=== PATIENT | female | born 1985 | race Caucasian/White ===

== ENCOUNTER 2017-04-11 09:57 | Inpatient (IN) | payer OTHER ==
[~2017-04-11] VITALS: Ht 170.2 cm; Wt 103.0 kg
[~2017-04-11 09:57] MED LIST: PNV1COMB5
[2017-04-21] MEDS ORDERED: OXYTOCIN 30 UNIT/D5LR 500 ML 500 ML IV PRN (13:28)
[2017-04-21] MEDS ORDERED: LR(*) 1000 ML BAG 1,000 ML IV PRN (13:28)
[2017-04-21] MEDS ORDERED: DLR(*) 1000 ML BAG 1,000 ML IV SCH ×2 (13:28→15:05)
[2017-04-21] MEDS ORDERED: ceFAZolin(*) 2GM/D5W 50ML 50 ML IVPB PRN ×2 (13:28→15:05)
[2017-04-21] MEDS ORDERED: FAMOTIDINE(*) 20MG/50ML PREMIX 50 ML IVPB PRN ×2 (13:28→15:05)
[2017-04-21] MEDS ORDERED: LIDOCAINE 1% LOCAL 300 MG/30ML INJ PRN ×2 (13:30→15:05)
[2017-04-21] MEDS ORDERED: METOCLOPRAMIDE 10 MG/2 ML SDV IVP PRN ×2 (13:30→15:05)
[2017-04-21] MEDS ORDERED: FLUSH 10 ML SYR IVP PRN ×2 (13:30→15:05)
[2017-04-21] MEDS ORDERED: fentaNYL CITR 100 MCG/2 ML AMP IVP PRN ×2 (13:30→15:05)
[2017-04-21] MEDS ORDERED: ONDANSETRON 4 MG/2 ML VIAL IVP PRN ×2 (13:30→15:05)
[2017-04-21] MEDS ORDERED: MISOPROSTOL 25 MCG CAP PV PRN (13:30)
[2017-04-21] MEDS ORDERED: ACETAMINOPHEN 325 MG TAB PO ONE (13:30)
[2017-04-21] MEDS ORDERED: LIDOCAINE/SOD BICARB 8.4% SYR SC PRN ×2 (13:30→15:05)
[2017-04-21] MEDS ORDERED: TERBUTALINE SULF 1 MG/ML VIAL SUBQ PRN ×2 (13:30→15:05)
[2017-04-21] MEDS ORDERED: FAMOTIDINE 10 MG/ML SDV IVP PRN (15:05)
[2017-04-21] MEDS ORDERED: FAMOTIDINE 20 MG/50 ML PREMIX IVPB PRN (15:20)
[2017-04-21 16:06] VITALS: BP 158/86; Ht 170.2 cm; Wt 103.0 kg
[2017-04-21 16:19] LABS: PLATELET COUNT, AUTOMATED 175 K/uL (150-450)
[2017-04-21] MEDS: MISOPROSTOL 25 MCG CAP PV PRN ×2 (16:23→21:10)
[2017-04-21] MEDS: LR(*) 1000 ML BAG 1,000 ML IV PRN (21:10)
[2017-04-22] MEDS: OXYTOCIN 30 UNIT/D5LR 500 ML 500 ML IV PRN (02:00)
[2017-04-22] MEDS: LR(*) 1000 ML BAG 1,000 ML IV PRN ×3 (04:08→13:50)
--- NOTE | 2017-04-22 07:28 | History & Physical ---
History of Present Illness Age of Patient: 32 : 1 Para or TPAL: 0 EDC per LMP: Apr 23, 2017 EDC per U/S: Apr 18, 2017 Estimated Gestational Age: 39.6 Chief Complaint Induction of labor History of Present Illness Pt is a 32 y/o @ 39-6/7 weeks gestation who presents to L&D for an induction of Labor secondary to Polyhydramnios and Gestational Hypertension. Pt reported to clinic and was noted to be measuring size greater then dates. Underwent sonogram that showed JOSHUA of 26 and an EFW of 8#13oz. Pt denies any headaches or visual changes. Good movement. No vaginal bleeding. 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 , Michael. Med Rec Home Meds Reported Medications Pnv #116/Iron Fumarate/Fa/Dha (EXPECTA COMBO PACK) 1 Each Combo..pkg 04/01/17 Review of Systems All Systems Reviewed/Normal: Yes, Except as Noted Constitutional: No Fever, No Weight Loss, No Weight Gain, No Chills, No Night Sweats, No Other Neurological: No Syncope, No Confusion, No Weakness, No Dizziness, No Slurred Speech, No Other Eyes: No Vision Change, No Loss of Vision, No Photophobia, No Other ENT: No Hearing Loss, No Sinus Congestion, No Sore Throat, No Ear Ache, No Tinnitus, No Other Cardiovascular: No Chest Pain, No Palpitations, No Orthostatic Hypotension, No Other Respiratory: No Shortness of Breath, No Cough, No Wheezing, No Other Gastrointestinal: No Nausea, No Vomiting, No Diarrhea, No Dysphagia, No Constipation, No Early Satiety, No Hematemesis, No Hematochezia, No Melena, No Abdominal Pain, No Other Genitourinary: No Dysuria, No Hematuria, No Urinary Incontinence, No Other Musculoskeletal: No Pain, No Sprain, No Strain, No Impaired Mobility, No Other Psychiatric: No Depression, No Anxiety, No Other Exam General Exam Vital Signs Vital Signs Date Time Temp Pulse Resp B/P (MAP) Pulse Ox O2 Delivery O2 Flow Rate FiO2 04/21/17 16:06 98.9 118 21 158/86 (110) 95 Room Air General Apperance: Alert/Awake/No Acute Distress Neuro: No Gross deficits Eyes: Normal Extraocular Movement & Vison, PERRLA ENT: Normal Cardiovascular: Regular Rate and Rhythm Respiratory: No Respiratory Distress, Clear to Auscultation Abdomen: Soft, Non-Tender, Non-Distended, Gravid - Non-Tender : Normal Musculoskeletal: No Weakness/Pain Extremities: No Cyanosis,Clubbing or Edema Integumentary: Skin Intact without Lesions or Rash Psychological: Appropriate Mood & Affect Vaginal Discharge/Fluid?: Clear Fluid (amniotomy with clear fluid) Cervical Dialation: 3 Cervical Effacement (%): 75 Cervical Consistency: Moderate Cervical Position: Anterior Station: -2 Presentation: Vertex Uterine Contractions(Q min): 2 Uterine Contraction Strength: Moderate UC Resting Tone: Soft Fetus Feeling Movement?: No Estimated Weight(grams): 4010 Heart Tones: 130 Heart Tone Variabilty: Moderate FHT Accelerations: 15X15 FHT Decelerations: None FHT Category: I Medical Decision Making Data Points Result Diagram: 04/21/17 1603 Pre-Admit Course Medical Record Review: Yes VTE Prophylasis: Adult Deep Vein Thrombosis/Pulmonary: No 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 Amniotomy at 0545. Currently on oxytocin at 6 mU/min. (3) Gestational hypertension SHARRI MORENO DO Apr 22, 2017 07:28
--- NOTE | 2017-04-22 08:37 | Labor Progress Note ---
Labor Subjective Progress Notes Subjective Oxytocin at 8 milliunits/minute, with contractions Q 3 minutes, becoming more painful, 5-6/10. Still doesn't want epidural. Leaking large amounts of clear fluid. Labor Objective Vital Signs Vital Signs Date Time Temp Pulse Resp B/P (MAP) Pulse Ox O2 Delivery O2 Flow Rate FiO2 04/21/17 16:06 98.9 118 21 158/86 (110) 95 Room Air BP's about 150/90's. Cervical Dialation: 3.5 Cervical Effacement (%): 85 Cervical Consistency: Moderate Cervical Position: Posterior Station: -2 Fetus Heart Tones: 130 FHT Category: I Other Result Diagram: 04/21/17 1603 Assessment and Plan Problems: (1) 39 weeks gestation of Assessment & Plan: Slow progress in labor. Continue IV Oxytocin. Might need internal uterine monitor if cervical change remains low. (2) POLYHYDRAMNIOS, THIRD TRIMESTER, NOT APPLICABLE OR UNSP (3) Gestational hypertension Assessment & Plan: Stable hypertension. MARIN TORRE MD Apr 22, 2017 08:37
[2017-04-22] MEDS ORDERED: fentaNYL CITR 100 MCG/2 ML AMP IT PRN (10:55)
[2017-04-22] MEDS ORDERED: FENTANYL/ROPIVACAINE 100 ML BAG EPI PRN (10:55)
[2017-04-22] MEDS ORDERED: BUPIVACAINE 0.25% MPF INJ EPI PRN (10:55)
[2017-04-22] MEDS ORDERED: BUPIVACAINE 0.5% INJ 30ML VIAL EPI PRN (10:55)
[2017-04-22] MEDS ORDERED: LIDO/EPI 2% MPF 1:200,000 20ML EPI PRN (10:55)
[2017-04-22] MEDS ORDERED: LIDOCAINE/PF 2% 200MG/10ML AMP 200 MG/10 ML AMPUL EPI PRN (10:55)
[2017-04-22] MEDS ORDERED: EPIDURAL KEYS XX PRN (10:58)
[2017-04-22] MEDS ORDERED: ePHEDrine 25 MG/5 ML DISP.SYR IVP ONE (11:32)
--- NOTE | 2017-04-22 13:59 | Anesthesia OB Pre-Anes Eval ---
History of Present Illness Anesthesia Start Date: Apr 22, 2017 Anesthesia Start Time: 11:35 OB Anesthesia Diagnosis: induction - medical Complications: None known EDC: Apr 23, 2017 : 1 Para: 0 Vital Signs: Vital Signs Date Time Temp Pulse Resp B/P (MAP) Pulse Ox O2 Delivery O2 Flow Rate FiO2 04/21/17 16:06 98.9 118 21 158/86 (110) 95 Room Air Pain Ratin Heart Tones: WNL Result Diagram: 04/21/17 1603 Height (Inches): 67.00 Weight (Pounds): 227 BMI Calculated: 35.55 Past Medical History Surgical History: tonsillectomy Previous Anesthesia: general Attended Childbirth Classes?: No Hx Anesthesia Reactions: No Hx Family Anesthesia Reaction: No Current Medications: pitocin, pain medication Home Meds Reported Medications Pnv #116/Iron Fumarate/Fa/Dha (EXPECTA COMBO PACK) 1 Each Combo..pkg 04/01/17 Allergies: Uncoded Allergies: BERRIES (Allergy, Severe, HIVES, THROAT SWELLING, 02/22/13) Anesthesia OB ROS Neurological: No migraines/headaches, No seizures, No neuropathy ENT: Denies Tooth caps, Denies Loose teeth, Denies Chipped teeth, Denies Dentures, Denies Bridges, Denies Retainers, Denies Veneers, Denies Implants, Denies Tongue ring Pulmonary: No asthma, No smoker (pks/day/yrs) Airway Class: lV Cardiovascular ROS: No edema, No arrhythmia, other GI ROS: clear liquids Last Solids Date: Apr 21, 2017 Last Solids Time: 20:00 ROS: No Herpes, No STD(s), No Liver Disease, No Renal Disease Endocrine ROS: No diabetes, No gestational diabetes, No thyroid disorder Musculoskeletal ROS: No low back pain, No low back injury, No scoliosis ASA Classification: 2 Assessment and Plan Anesthesia Plan: CSE Assessment Past Medical, Surgical, Family and Obstetric Histories reviewed. Please see ACOG chart. Epidural anesthesia risks, complications and benefits explained to patient's satisfaction for labor and vaginal delivery and/or section. General anesthesia risks and benefits explained to patient's satisfaction. Questions invited, none asked. MICHAEL LUGO CRNA Apr 22, 2017 13:59
--- NOTE | 2017-04-22 14:03 | Procedure Note ---
Anesthetic Placement Note Anesthesia Plan: CSE Permit for Anesthesia Signed: Yes Anesthesia Technique: Patient Sitting Anesthesia Prep: Chlorhexidine Interspace: L 3-4 Local Anesthetic: 1% Lidocaine, 25 Gauge Needle Amount Local - cc's: 2 Anesthesia Needle: 17g Touhy/Schliff Anesthesia Attempts: 1 Loss of Resistance: Air Depth of SYDNEE (cm): 7 Intrathecal Needle: 27 Gauge Pencan Cerebral Spinal Fluid: Yes, Clear Catheter Insertion (cm): 9 Catheter Type: Louie - Spring Wound Epidural Dressing: Tegaderm, Tape, Adhesive Reese Anesthesia Tray: Lot Number ([id number]), Expiration Date (2017-12-10), Reference Number ([id number]) Comment: Vital signs stable. Patient comfortable and condition stable. Anesthesia Medications: Intrathecal Dose: mcg Fentanyl (15), mg Marcaine MPF (1.75), Time (1153) Epidural Test Dose: 1.5 Lido/Epi (1:200,000), Dose - mL (2), Time (1215), Negative Epidural Loading Dose: 0.2% Ropivicaine, With Fentanyl 2mcg/ml, Dose - ml (5), Time (1218) Epidural Infusion: 0.2% Ropivicaine, With Fentanyl 2mcg/ml, Start Time: (1218) Epidural Pump Setting: Bolus Dose - mL (5), Lockout - Minutes (20), Maintenance Rate - mL/hr (6), Maximum per Hour - mL (21) Complications: None Comment: Pt. appears to be move comfortable. Encouraged to sleep as much as possible. MICHAEL LUGO CRNA Apr 22, 2017 14:03
--- NOTE | 2017-04-22 14:05 | Anesthesia Progress Note ---
Progress/Maintenance Anesthesia Note Date: Apr 22, 2017 Anesthesia Note Time: 13:45 Pain Intensity: 0 Pump: On Pump Rate (ML/HR): 4 Sensory Level: T-12 Motor Level: Other (Both legs very heavy) Dilatation: 6 Position: Right, Tilt Assessment and Plan Assessment Pt. sleeping very soundly, snoring loudly. Woke pt. to have her turn to left side. Pt. states she can not lift her left leg. Epidural pump rate decreased to 4 ml/hr from 6/hr. MICHAEL LUGO CRNA Apr 22, 2017 14:05
--- NOTE | 2017-04-22 16:38 | Anesthesia Progress Note ---
Progress/Maintenance Anesthesia Note Date: Apr 22, 2017 Anesthesia Note Time: 16:30 Pain Intensity: 0 Pump: On Pump Rate (ML/HR): 4 Sensory Level: T-10 Motor Level: Other (leg remains very heavy) Dilatation: 8 Position: Semi-Fowlers Assessment and Plan Assessment Pt. more awake now. Sitting semi-fowlers per RN request. Pt. states she only notices contractions with viewing them on the monitor and can then tell her abdomen is tight. MICHAEL LUGO CRNA Apr 22, 2017 16:38
[2017-04-22] MEDS: ACETAMINOPHEN 325 MG TAB PO PRN ×2 (17:25→21:58)
--- NOTE | 2017-04-22 19:19 | Labor Progress Note ---
Labor Subjective Progress Notes Subjective Feeling increased pressure. Feeling Movement?: Yes Vaginal Discharge/Fluid: Bloody Show, Clear Fluid Labor Pain: Mild Neurological: No Headache, No Other Eyes: No Visual Disturbances Labor Objective Vital Signs Vital Signs Date Time Temp Pulse Resp B/P (MAP) Pulse Ox O2 Delivery O2 Flow Rate FiO2 04/21/17 16:06 98.9 118 21 158/86 (110) 95 Room Air Vaginal Discharge/Fluid?: Bloody Show, Clear Fluid Cervical Dialation: 9 Cervical Effacement (%): 100 Cervical Consistency: Soft Cervical Position: Anterior Station: -1 Presentation: Vertex Uterine Contractions(Q min): 3 Uterine Contraction Strength: Moderate UC Resting Tone: Soft Fetus Heart Tones: 135 Heart Tone Variabilty: Moderate FHT Accelerations: 15X15 FHT Decelerations: None FHT Category: I Other Result Diagram: 04/21/17 1603 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 Oxytocin at 22 mU/min. Continue oxytocin to 30 to get adequate labor pattern. (3) Gestational hypertension SHARRI MORENO DO Apr 22, 2017 19:19
--- NOTE | 2017-04-22 19:20 | Anesthesia Progress Note ---
Progress/Maintenance Anesthesia Note Date: Apr 22, 2017 Anesthesia Note Time: 19:15 Pain Intensity: 4 Pump: On Pump Rate (ML/HR): 6 Sensory Level: T-12 Motor Level: Bending Knees-Bilateral Dilatation: 9 Position: Right, Tilt Drug Bolus: 0.2% Ropivicaine, Fentanyl 2mcg/ml, Other (Fentenyl 50 mcgs) Assessment and Plan Assessment Pt. states she is feeling contractions now and becoming stronger, rates them as a "4". Bolus of Fentenyl and bolus per epidural pump given. Rate of epidural pump increased to 6 ml. Pt. is able to move her left leg move now. MICHAEL LUGO CRNA Apr 22, 2017 19:19
--- NOTE | 2017-04-22 20:30 | Anesthesia Progress Note ---
Progress/Maintenance Anesthesia Note Date: Apr 22, 2017 Anesthesia Note Time: 20:00 Pain Intensity: 0 Pump: On Pump Rate (ML/HR): 6 Sensory Level: T-12 Dilatation: 9 Position: Left, Tilt Assessment and Plan Assessment Pt. states that she is more comfortable after epidural medication was given. Numerous family at beside. MICHAEL LUGO CRNA Apr 22, 2017 20:30
[2017-04-22] MEDS ORDERED: METHYLERGONOVINE MAL 0.2MG/ML ONE (22:33)
[2017-04-22] MEDS ORDERED: CARBOPROST TROMETHAM 250MCG/ML IM ONLY ONE (22:33)
--- NOTE | 2017-04-22 23:23 | Labor Progress Note ---
Labor Subjective Progress Notes Subjective Doing good. Starting to feel increased pressure with each contraction. Reports a mild headache that Tylenol has helped. 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 Will start pushing with patient. (3) Gestational hypertension SHARRI MORENO DO Apr 22, 2017 23:23
[2017-04-23] MEDS: OXYTOCIN 30 UNIT/D5LR 500 ML 500 ML IV PRN (00:54)
[2017-04-23] MEDS ORDERED: DIPHTH/TETANUS/ACEL. PERTUSSIS IM ONE (00:55)
[2017-04-23] MEDS ORDERED: BENZOCAINE 20% 60 ML BTL TP PRN (00:55)
[2017-04-23] MEDS ORDERED: GLYCERIN/WITCH HAZEL LEAF 1 PK TOP PRN (00:55)
[2017-04-23] MEDS ORDERED: MEASLES,MUMP,RUBELLA VAC 0.5ML SC ONE (00:55)
[2017-04-23] MEDS ORDERED: APAP/HYDROCODONE 325/5 TAB PO PRN (00:55)
[2017-04-23] MEDS ORDERED: HYDROCORTISONE 2.5% CR 30GM TB PR PRN (00:55)
[2017-04-23] MEDS ORDERED: MAGNESIUM HYDROXIDE* 30ML UDCP PO PRN (00:55)
[2017-04-23] MEDS ORDERED: INFLUENZA VIRUS VAC 0.5 ML SYR IM ONLY ONE (00:55)
--- NOTE | 2017-04-23 00:55 | Anesthesia Progress Note ---
Progress/Maintenance Anesthesia Note Date: Apr 23, 2017 Anesthesia Note Time: 00:40 Pain Intensity: 0 Pump: Off Motor Level: Bending Knees-Bilateral Dilatation: 10 Position: Semi-Fowlers Drug Bolus: Other (Fentenyl 35 mcgs) Assessment and Plan Assessment Pump rate was decreased to 3 ml/hr at 2250. Pt was sleeping very soundly. For delivery, pt. was able to push well and was very comfortable during repair work. Patient instructed the first ambulation is to be with help of nursing staff. Instructed to preform deep knee bends at bedside before walking. Empty syringe attached to epidural catheter and RN agrees to remove with pt's first ambulation. Anesthesia Stop Day: Apr 23, 2017 Anesthesia Stop Time: 00:40 MICHAEL LUGO CRNA Apr 23, 2017 00:55
--- NOTE | 2017-04-23 01:03 | OB Delivery Note ---
Delivery Note Vaginal Delivery Type: Spont. Vaginal Delivery Delivery Date: Apr 23, 2017 Delivery Time: 00:07 Estimated Gestational Age(wks): 40.0 Length of Labor Stage I (hrs): 18 Length of Labor Stage II (hrs): 1 Labor Stage III (minutes): 8 Delivery Anesthesia: Epidural Sex: Male Infant Weight (gms): 4050 (8#15oz) [place] Apgars: 1 Minute (8) Repair Needed: Labial (bilateral), 2nd Degree Game Warden in Attendence: SHARRI Blanco DO Apr 23, 2017 01:03
[2017-04-23] MEDS: IBUPROFEN 800 MG TAB PO SCH ×3 (02:01→17:26)
[2017-04-23] MEDS: LANOLIN OINT 7 GM TUBE TP PRN (02:24)
[2017-04-23 03:42] VITALS: BP 129/65
[2017-04-23 07:30] VITALS: BP 107/60
[2017-04-23 07:55] VITALS: BP 134/68
--- NOTE | 2017-04-23 08:13 | OB/GYN Progress Note ---
OB Subjective Progress Notes Subjective Feeling OK. Tired, but slept about 5 hours. Moderate lochia. Ambulating well, has voided. Perineum and labia fairly sore. Baby doing well. OB Objective Physical Exam Vital Signs Date Time Temp Pulse Resp B/P (MAP) Pulse Ox O2 Delivery O2 Flow Rate FiO2 04/23/17 03:42 97.8 125 18 129/65 (86) 95 Room Air General Appearance: Alert/Awake/No Acute Distress Cardiovascular: Regular Rate and Rhythm Respiratory: No Respiratory Distress, Clear to Auscultation Abdomen: Bowel Sounds Present, Fundus Firm (at U), Non-Tender Extremities: Edema (1+ pretibial), No Tender Calves Psychological: Alert & Oriented X3, Appropriate Mood & Affect Result Diagram: 04/21/17 1603 Assessment and Plan Problems: (1) Encounter for care and examination of mother immediately after delivery Assessment & Plan: Doing fairly well, now about 8 hours after delivery. Continue PP care and observation of BP's. Home tomorrow. (2) 39 weeks gestation of Status: Resolved (3) POLYHYDRAMNIOS, THIRD TRIMESTER, NOT APPLICABLE OR UNSP Status: Resolved (4) Gestational hypertension Status: Resolved MARIN TORRE MD Apr 23, 2017 08:13
[2017-04-23] MEDS: DOCUSATE CALCIUM 240 MG CAP PO SCH ×2 (08:58→21:29)
--- NOTE | 2017-04-23 09:38 | Anesthesia Post Eval Note ---
Anesthesia Post Eval Note Vital Signs Date Time Temp Pulse Resp B/P (MAP) Pulse Ox O2 Delivery O2 Flow Rate FiO2 04/23/17 03:42 97.8 125 18 129/65 (86) 95 Room Air Pt able to participate in Eval: Yes Cardiovascular Status: Satisfactory Respiratory Status: Satisfactory Pain Managment: Satisfactory PO Nausea/Vomiting: Satisfactory Temperature Management: Satisfactory Mental Status: Satisfactory, Alert, Oriented X3 Post-Op Hydration Status: Satisfactory, Tolerating PO Well, Voiding w/o Difficulty Anesthesia Type: CSE Anesthesia Tolerance: Tolerated procedure well without apparent anesthetic complications. LP site clear, no redness or edema. Denies headache or any residual paresthesia. Vital Signs Stable, Patient comfortable and condition stable. MICHAEL LUGO CRNA Apr 23, 2017 09:38
[2017-04-23 13:11] VITALS: BP 133/76
[2017-04-23] MEDS ORDERED: CALCIUM CARBONATE 500 MG CHEW PO PRN (16:20)
[2017-04-23 16:41] VITALS: BP 129/74
--- NOTE | 2017-04-23 17:31 | DELIVERY NOTE ---
DELIVERY DATE: April 23, 2017 SURGEON: Bryce Jimenes DO ANESTHESIA: Epidural by Mahsa De Souza PREOPERATIVE DIAGNOSIS 1. A 32-year-old 1, para 0 at 40-0/7 weeks gestation. 2. Induction of labor. 3. Polyhydramnios. 4. Gestational hypertension. POSTOPERATIVE DIAGNOSES 1. A 32-year-old 1, para 0 at 40-0/7 weeks gestation. 2. Induction of labor. 3. Polyhydramnios. 4. Gestational hypertension. 5. Delivered. PROCEDURE Spontaneous vaginal delivery with repair of bilateral labia lacerations and second degree midline laceration. COMPLICATIONS Unknown. CONDITION Stable times two. Mother and remained in LDRP. COUNTS Correct times two for all needles, laps, sponges and instruments. ESTIMATED BLOOD LOSS [*] 500 mL PATHOLOGY None. FINDINGS Live born male infant at 0007 of April 23, 2017 with Apgars of 8 and 9, weighing 4050 g, 8 pounds 15 ounces. Three vessel cord, intact placenta over a second degree midline laceration with bilateral labial lacerations. LABOR SUMMARY Patient is a 32-year-old 1, para 0 at 40 weeks gestation who presented to clinic on April 21, 2017 for an OB check. She was noted to be measuring size greater than dates. She underwent an ultrasound that noted an infant that is approximately 4.1 kg, but did have polyhydramnios with an JOSHUA of 26. Patient was counseled at secondary to being 39, almost 40 weeks gestation, that she should undergo induction of labor for polyhydramnios. It would also benefit her to get induced to ensure that the infant did not get any larger or cause any more difficulty with delivery. Patient left the office and presents to Labor and Delivery approximately four hours later. She underwent vaginal exam and was noted to be 1 cm dilated. She did receive two doses of 25 mcg of Cytotec approximately four hours apart for cervical ripening. With cervical ripening the patient was noted to be holly roughly every three to seven minutes. She was started on oxytocin. Oxytocin infusion remained overnight. She underwent amniotomy on April 22, 2017 with clear amniotic fluid at 3 cm. Oxytocin was continued. The patient made slow progress throughout the day, but eventually did get to complete with the help of oxytocin and an epidural. Once the patient was noted to be complete, a few trial pushes were attempted and coaching was performed by the nursing staff, and after an approximately an hour of pushing the delivery team was called and assembled. DELIVERY SUMMARY The patient was placed in the dorsal lithotomy position. She was prepped and draped in the usual sterile manner. Upon maternal pushing the 's head was delivered in a controlled manner in the direct OA position. With gentle downward motion the anterior shoulder was delivered. With gentle upward motion the posterior shoulder was delivered, with the remainder of the 's body delivered spontaneously. The mouth and nose were bulb suctioned. The infant was placed on maternal abdomen, where he was vigorously cleaned and dried by the nursing staff. Approximately two minutes the cord was clamped times two and cut by the 's father. With the cord clamped and cut, the infant had the changed and remained on maternal chest and abdomen. Cord blood gases were then obtained. The placenta delivered spontaneously with gentle traction. With delivery of the placenta, the oxytocin was infused to help with uterine tone. Uterus massaged, deemed firm. Upon inspection of the perineum, vagina, cervix and labia it was noted that there was a significant right labial laceration with a left labial laceration, as well as a second degree midline laceration. The labia lacerations were repaired with 4-0 Vicryl in a running manner. The second degree midline laceration was repaired with a 3-0 Vicryl inter-running manner. With lacerations inspected, the patient was noted to be hemostatic. At this point the labor bed was reassembled and the mother and were allowed to continue to hamm. YOVANY
[2017-04-23 19:30] VITALS: BP 130/81
[2017-04-23] MEDS: ACETAMINOPHEN 325 MG TAB PO PRN (21:33)
[2017-04-24 00:05] VITALS: BP 127/72
[2017-04-24] MEDS: IBUPROFEN 800 MG TAB PO SCH ×3 (01:18→16:33)
[2017-04-24 07:30] VITALS: BP 141/96
--- NOTE | 2017-04-24 08:06 | OB/GYN Progress Note ---
OB Subjective Progress Notes Subjective Feeling OK. Mild-moderate cramping with nursing. Lochia decreasing a little. Perineum unchanged, still somewhat swollen and tender. Ambulating and voiding OK. Wants to go home today. Baby doing well. OB Objective Physical Exam Vital Signs Date Time Temp Pulse Resp B/P (MAP) Pulse Ox O2 Delivery O2 Flow Rate FiO2 04/24/17 04:45 91 20 95 Room Air 04/24/17 00:05 98.6 127/72 (90) P down to 90's. General Appearance: Alert/Awake/No Acute Distress Cardiovascular: Regular Rate and Rhythm Respiratory: No Respiratory Distress, Clear to Auscultation Abdomen: Bowel Sounds Present, Fundus Firm (at U), Non-Tender Extremities: Edema (1+ pretibial), No Tender Calves Psychological: Alert & Oriented X3, Appropriate Mood & Affect Result Diagram: 04/24/17 0535 Assessment and Plan Problems: (1) Encounter for care and examination of mother immediately after delivery Assessment & Plan: Doing well . Ready for discharge later today. (2) 39 weeks gestation of Status: Resolved (3) POLYHYDRAMNIOS, THIRD TRIMESTER, NOT APPLICABLE OR UNSP Status: Resolved (4) Gestational hypertension Status: Resolved MARIN TORRE MD Apr 24, 2017 08:06
[2017-04-24] MEDS ORDERED: TUCKS TOP (08:11)
[2017-04-24] MEDS ORDERED: IBUP800T37 PO (08:11)
[2017-04-24] MEDS ORDERED: LOR5/325 PO (08:11)
[2017-04-24] MEDS ORDERED: ACET-2007 PO (08:11)
[2017-04-24] MEDS ORDERED: Benzocaine 60 ML TP (08:11)
[2017-04-24] MEDS ORDERED: DOCU240C67 PO (08:11)
[2017-04-24] MEDS ORDERED: Lanolin TP (08:11)
--- NOTE | 2017-04-24 08:16 | OB/GYN Discharge Summary ---
Discharge Summary Reason for Hosp/Final Diag: (1) Encounter for care and examination of mother immediately after delivery Hospital Course & Plan: After a prolonged, induced labor with vaginal delivery of a healthy male , the patient had no significant problems. After almost 48 hours, she was discharged to rooming-in status, since her baby required further care due to hyperbilirubinemia. (2) 39 weeks gestation of Status: Resolved (3) POLYHYDRAMNIOS, THIRD TRIMESTER, NOT APPLICABLE OR UNSP Status: Resolved (4) Gestational hypertension Status: Resolved Lates Vital Signs Vital Signs Date Time Temp Pulse Resp B/P (MAP) Pulse Ox O2 Delivery O2 Flow Rate FiO2 04/24/17 04:45 91 20 95 Room Air 04/24/17 00:05 98.6 127/72 (90) Weight (Pounds): 227 Result Diagram: 04/24/17 0535 Condition: Improved Discharge: Home, Self Snf Meds Active Scripts Hydrocodone Bit/Acetaminophen (HYDROCODON-ACETAMINOPHEN 5-325) 1 Each Tablet, 1- 2 EACH PO Q4H Y for PAIN, #10 TAB Prov:MARIN TORRE MD 04/24/17 Reported Medications Pnv #116/Iron Fumarate/Fa/Dha (EXPECTA COMBO PACK) 1 Each Combo..pkg 04/01/17 Follow up with: Dr. Jimenes [phone] Follow up in: 6 wks PP or PO Discharge Diet: As Tolerates Discharge Activity: As Tolerates Copies to: SHARRI JIMENES MARK F MD Apr 24, 2017 08:16
[2017-04-24] MEDS: DOCUSATE CALCIUM 240 MG CAP PO SCH ×2 (09:49→20:34)
[2017-04-24 11:44] VITALS: BP 141/73
[2017-04-24 15:14] VITALS: BP 136/83
[2017-04-24] MEDS: LANOLIN OINT 7 GM TUBE TP PRN (15:45)
[2017-04-24] MEDS: ACETAMINOPHEN 325 MG TAB PO PRN ×2 (15:45→20:34)
[2017-04-24 20:15] VITALS: BP 142/84
[2017-04-25] VITALS: BP 142/80
[2017-04-25] MEDS: IBUPROFEN 800 MG TAB PO SCH ×2 (00:48→09:34)
[2017-04-25 07:15] VITALS: BP 136/72
[2017-04-25] MEDS: DOCUSATE CALCIUM 240 MG CAP PO SCH (09:34)
--- NOTE | 2017-04-25 10:16 | OB/GYN Progress Note ---
OB Subjective Progress Notes Subjective Doing well. Pain controlled and ambulating. Tolerating regular diet; voiding well. GI: NEG Nausea : Voiding Well Pain: Mild OB Objective Physical Exam Vital Signs Date Time Temp Pulse Resp B/P (MAP) Pulse Ox O2 Delivery O2 Flow Rate FiO2 04/25/17 07:15 97.8 103 16 136/72 (93) Room Air 04/25/17 00:00 95 General Appearance: Alert/Awake/No Acute Distress Cardiovascular: Normal Rhythm & Peripheral Pulses, Regular Rate and Rhythm Respiratory: No Respiratory Distress, Clear to Auscultation Abdomen: Soft, Non-Tender, Non-Distended, Fundus Firm (at U), Non-Tender Extremities: Edema (1+ pretibial), No Tender Calves Psychological: Alert & Oriented X3, Appropriate Mood & Affect Result Diagram: 04/24/17 0535 Assessment and Plan Problems: (1) Encounter for care and examination of mother immediately after delivery Assessment & Plan: After a prolonged, induced labor with vaginal delivery of a healthy male infant, the patient had no significant problems. After almost 48 hours, she was discharged to rooming-in status, since her baby required further care due to hyperbilirubinemia. 04/25 Pt doing well. Ready for discharge. (2) 39 weeks gestation of Status: Resolved (3) POLYHYDRAMNIOS, THIRD TRIMESTER, NOT APPLICABLE OR UNSP Status: Resolved (4) Gestational hypertension Status: Resolved PRASHANT PAULINO MD Apr 25, 2017 10:15
[2017-04-25 11:15] VITALS: BP 138/77
== END 2017-04-25 11:49 | disposition home or self-care (01) | DRG 775 ==
LOC: OB 04-21 14:50
PROVIDERS: ADMIT Student in an Organized Health Care Education/Training Program; ATTEND Student in an Organized Health Care Education/Training Program
PROC: 3E0P7VZ Introduction of Hormone into Female Reproductive, Via Natural or Artificial Opening (ICD-10-PCS; 2017-04-22)
PROC: 10907ZC Drainage of Amniotic Fluid, Therapeutic from Products of Conception, Via Natural or Artificial Opening (ICD-10-PCS; 2017-04-22)
PROC: 10H07YZ Insertion of Other Device into Products of Conception, Via Natural or Artificial Opening (ICD-10-PCS; 2017-04-22)
PROC: 10E0XZZ Delivery of Products of Conception, External Approach (ICD-10-PCS; principal; 2017-04-23)
PROC: 0KQM0ZZ Repair Perineum Muscle, Open Approach (ICD-10-PCS; 2017-04-23)
DX: O13.4 Gestational [pregnancy-induced] hypertension without significant proteinuria, complicating childbirth (principal); O40.3XX0 Polyhydramnios, third trimester, not applicable or unspecified; O70.1 Second degree perineal laceration during delivery; Z37.0 Single live birth; Z3A.39 39 weeks gestation of pregnancy; Z3A.40 40 weeks gestation of pregnancy; Z91.018 Allergy to other foods
CPT/HCPCS: 36415; 85025; 85027; 86850; 86900; 86901; J2405; J2590; J3010; J7120; S0020